=== PATIENT | male | born 1950 | race Caucasian/White ===

== ENCOUNTER 2016-08-05 03:42 | Inpatient (IN) | payer OTHER ==
[2016-08-05] VITALS (9 sets, daily range): BP systolic 126–186; BP diastolic 70–98
[~2016-08-05] VITALS: Ht 170.2 cm; Wt 80.3 kg
--- NOTE | ~2016-08-05 | EKG ---
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
--- NOTE | ~2016-08-05 | EKG ---
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 08/06/16 0852 D: [id number] Dylan Brandt MD, FAC /EPI
--- NOTE | ~2016-08-05 | H ---
[facility] [place] [address] HISTORY AND PHYSICAL Name: LILLIAM HINKLE Room #: 208-P [facility] IN M.R.#: [id number] Admission: 08/05/16 Attend Phys: Jose Vargas Discharge: Date of : 54 Report #: [id number] THIS REPORT FOR: //name// CC: JOSE Vargas TYPE OF DICTATION: Admission H and P after ovca-bh-wmwc encounter. CHIEF COMPLAINT: Chest pain. HISTORY OF PRESENT ILLNESS: A 66-year-old white man with chest pain which awakes him this morning. Retrosternal pressure pain. The patient stated that he has a history of coronary artery disease, CT, stent placement in September 2015. Over the past week, he was not feeling well, has symptoms of ____, generalized weakness, nausea, chills, diarrhea. Last evening, he awoke up with chest pain associated with short of breath and diaphoresis and he got troponin which was negative and EKG did not show any acute changes. REVIEW OF SYSTEMS: Except that mentioned in HPI, all other systems are negative. PAST MEDICAL HISTORY: 1. CT with stent placement in September 2015. 2. Hypertension. 3. Diabetes mellitus. 4. Hyperlipidemia. 5. Tobacco abuse. PAST SURGICAL HISTORY: Stent placement. MEDICATIONS: See admission reconciliation sheet. ALLERGIES: No known drug allergies. SOCIAL HISTORY: He is positive for smoking up to 2-1/2 pack per day. FAMILY HISTORY: Noncontributory. PHYSICAL EXAMINATION: GENERAL: He is alert, oriented, not in acute distress. VITAL SIGNS: Blood pressure 160/80, heart rate 70, temperature 36.8, respirations 18. HEENT: PERRLA. Intact extraocular muscles. No icterus. NECK: Supple, no JVD, no bruit, no thyroid. CHEST: Good air entry both sides. Normal respiratory effort. CARDIOVASCULAR: Regular rate and rhythm. No murmur, rub or gallop. Normal S1 and S2. [facility] [place] [address] HISTORY AND PHYSICAL Name: MANANLILLIAM Nicolas Room #: [address] [place] [address] IN .R.#: [id number] Admission: 08/05/16 Attend Phys: Jose Vargas Discharge: Date of : 54 Report #: [id number] ABDOMEN: Lax, nontender, positive bowel sounds, no organomegaly appreciated. EXTREMITIES: No cyanosis, clubbing or edema. NEUROLOGIC: Cranial nerves 2-12 are intact. No focal neurological signs. PSYCHIATRIC: Normal affect, mood and judgment. SKIN: Intact. No ulcers or rash. LABORATORY DATA: White count is 11.7, hemoglobin 16.5. Sodium 138, creatinine 0.7 and troponin is negative. EKG did not show any abnormalities. Chest x-ray is negative. ASSESSMENT AND PLAN: 1. The patient is going to be admitted to telemetry. We are going to have serial troponins and EKGs and give him his home medicines and nitroglycerin and we are going to have Cardiology to see the patient. Eventually, he may need a nuclear stress test. 2. Nausea, vomiting and loss of appetite, this may be secondary to the . We are going to treat him symptomatically. 3. History of coronary artery disease status post stents. Continue aspirin and Plavix. 4. Hypertension, seems to be in fair range. We are going to continue home medication for that. 5. Diabetes mellitus. Continue his home regimen and check his blood sugars 4 times a day. 6. Tobacco abuse. I strongly recommended to quit. 7. Deep vein thrombosis and gastrointestinal prophylaxis. 8. The patient is going to be full code. <ELECTRONICALLY SIGNED> By: Walt Garcia MD 08/05/16 1519 1128 1358 Walt Garcia MD /nt
--- NOTE | ~2016-08-05 | EKG ---
[address] [address] ELECTROCARDIOGRAM REPORT Name: LILLIAM HINKLE Room #: 208-P ADM IN M.R.#: [id number] Admission: 08/05/16 Attend Phys: Jose Vargas Discharge: Date of : 54 Report #: [id number] THIS REPORT FOR: //name// [facility] Test Date: 2016-08-05 Test Time: 14:59:24 Pat Name: LILLIAM HINKLE Department: Room: 208 P Gender: M Donor Support Technician: Eusebio MEDELLIN : 1950 Requested By: Walt Garcia Order Number: [id number] MD: Dylan Brandt Measurements Intervals [place] Rate: 69 P: 64 [place]: 170 QRS: -35 QRSD: 98 T: 60 QT: 452 QTc: 485 Interpretive Statements Sinus rhythm Left axis deviation Borderline prolonged QT interval No previous ECG available for comparison Electronically Signed On 08-06-2016 8:57:07 PLANER OPERATOR / GRADER by Dylan Brandt [email or web address] <ELECTRONICALLY SIGNED> By: Dylan Brandt MD, [facility] 08/06/16 0857 1459 1459 Dylan Brandt MD, FAC /EPI
--- NOTE | ~2016-08-05 | D ---
[facility] [place] [address] [place] [address] DISCHARGE SUMMARY Name: LILLIAM HINKLE Nicolas Room #: 208-P [facility] IN M.R.#: [id number] Admission: 08/05/16 Attend Phys: Jose Vargas Discharge: 08/06/16 Date of : 54 Report #: [id number] THIS REPORT FOR: //name// CC: JOSE Vargas TYPE OF DICTATION: Discharge summary after regv-fv-eobb encounter. DISCHARGE DIAGNOSES: 1. Chest pain, resolved. 2. History of myocardial infarction with stent placed in September 2015. 3. Hypertension. 4. Diabetes. 5. Hyperlipidemia. 6. Tobacco abuse. DISCHARGE MEDICATIONS: See discharge summary. HOSPITAL COURSE: The patient was admitted to the hospital secondary to chest pain. The patient was admitted to telemetry and serial troponin was done and EKGs, which came back negative and EKG did not show any acute changes. Cardiology was consulted and they did see the patient and they decided to go with a stress test, which was done today. Nuclear stress test was negative for ischemic changes. So, the patient is stable and he is going to be discharged and to follow up with cardiology as an outpatient. <ELECTRONICALLY SIGNED> By: Walt Garcia MD 08/15/16 1708 1337 1402 Walt Garcia MD /nt
--- NOTE | ~2016-08-05 | CARDNUC ---
[facility] [employer] [place] [address] CARDIAC NUCLEAR IMAGING REPORT Name: MANANLILLIAM D Room #: 208-P [facility]#: [id number] Admission: 08/05/16 Attend Phys: Jose Hinkle Discharge: 08/06/16 Date of : 54 Date of Service: 08/06/16 1304 Report #: [id number] THIS REPORT FOR: //name// CC: JOSE Vargas DATE OF SERVICE: 08/06/2016 MYOCARDIAL PERFUSION IMAGING STUDY USING REGADENOSON GENDER: Male. PRIMARY CARE PHYSICIAN: Dr. Joshua. INDICATION: Chest pain. CORONARY HISTORY: CAD/PCI. CARDIOVASCULAR RISK FACTORS: Age, hypertension and hyperlipidemia. CARDIAC MEDICATIONS: Aspirin, Lipitor, Coreg and Plavix. TYPE OF STUDY: The patient underwent a SPECT study. STRESS PROTOCOL: A total of 0.4 mg of regadenoson was injected intravenously, followed by Cardiolite. The patient did not ambulate during the procedure. HEMODYNAMIC DATA: The resting heart rate was 61 beats per minute, with a blood pressure of 168/80 mmHg. Following regadenoson, the heart rate increased to 94 beats per minute and the systolic blood pressure did not significantly increase. The patient had symptoms consistent with regadenoson, but no chest discomfort. ELECTROCARDIOGRAM: The resting electrocardiogram revealed a sinus rhythm, nonspecific ST-segment abnormalities. Following regadenoson, there were no significant arrhythmias or ST-segment changes. PERFUSION IMAGING: Myocardial perfusion imaging was performed using Cardiolite, 10.5 mCi for the resting images and 35.0 mCi for the stress images. This was a same-day rest-stress imaging protocol. Gated SPECT images were obtained. Comparison of the post-pharmacologic stress and rest images revealed a mild fixed inferior wall defect. The gated portion of the study revealed normal global and segmental LV systolic function, ejection fraction of 61%. The fixed inferior wall defect most likely represents diaphragmatic attenuation artifact. IMPRESSION: [facility] [address] [place] [address] CARDIAC NUCLEAR IMAGING REPORT Name: LILLIAM HINKLE Room #: 208-P [facility] IN .R.#: [id number] Admission: 08/05/16 Attend Phys: Jose Hinkle Discharge: 08/06/16 Date of : 54 Date of Service: 08/06/16 1304 Report #: [id number] 1. Clinical response, nondiagnostic. 2. Stress ECG response, nonischemic. 3. Perfusion imaging, nonischemic. 4. Ventricular function, normal. CONCLUSION: This study is of low probability for inducible ischemia or prior infarct. There is normal global and segmental LV systolic function. <ELECTRONICALLY SIGNED> By: Ernesto Arroyo MD 08/07/16 0739 1304 1348 Ernesto Arroyo MD /nt
--- NOTE | ~2016-08-05 | HC ---
[facility] [place] [address] CONSULTATION Name: MANANLILLIAM Nicolas Room #: 208-P [facility] IN .R.#: [id number] Admission: 08/05/16 Attend Phys: Jose Vargas Discharge: Date of : 54 Report #: [id number] THIS REPORT FOR: //name// CC: JOSE Vargas DATE OF SERVICE: 08/05/2016 INDICATION: Chest pain. HISTORY OF PRESENT ILLNESS: This is a 66-year-old gentleman presenting with chest pains that woke him up last evening. He has a prior history of AL with stent placement in September 2015, at the [facility]. For the past week, he has been feeling ill with symptoms of nausea, loss of appetite, generalized weakness, chills, and diarrhea. Last evening, he woke up with chest pains, associated with shortness of breath and diaphoresis. The initial ECG did not reveal any acute ST segment changes. Serial troponin levels have been negative. Presently, his pain has abated. PAST MEDICAL HISTORY: 1. CAD with AL with stent placement in September 2015, at the [facility]. 2. Hypertension. 3. Diabetes mellitus. 4. Hypercholesterolemia. 5. Tobacco use. ALLERGIES: None. CURRENT MEDICATIONS: Include aspirin 81 mg daily, hydrocodone, Lipitor 40 mg a night, Coreg 12.5 mg twice a day, Plavix 75 mg daily, Neurontin, glipizide 5 mg, and metformin. SOCIAL HISTORY: Positive tobacco use, smokes 1-1/2 packs per day. FAMILY HISTORY: Negative for premature CAD. REVIEW OF SYSTEMS: A full 10-point review of systems performed. Only the pertinent positives and negatives are described in the HPI. PHYSICAL EXAMINATION: VITAL SIGNS: Blood pressure is 160/80, heart rate is 68 beats per minute. GENERAL APPEARANCE: This is an elderly appearing male, in no acute respiratory distress. HEAD AND EYES: Normocephalic. Sclerae are anicteric. ENT: Oral mucosa moist. NECK: Supple. [facility] [address] [place] [address] CONSULTATION Name: LILLIAM HINKLE Room #: 208-[facility] IN .R.#: [id number] Admission: 08/05/16 Attend Phys: Jose Vargas Discharge: Date of : 54 Report #: [id number] LUNGS: Clear to auscultation. CARDIAC: Regular rate and rhythm, S1, S2 positive. ABDOMEN: Soft. EXTREMITIES: No major joint deformities. No edema. ECG reveals sinus rhythm, nonspecific ST segment abnormalities. LABORATORY VALUES: White count is 11.7, hemoglobin is 16.5. Sodium is 138, creatinine 0.7. Troponin is negative x2. ASSESSMENT: 1. Chest pain syndrome, serial troponins are negative. The etiology is unclear, may be related to ischemia, gastrointestinal, musculoskeletal, etc. He will need an ischemic evaluation. Given his symptoms, would favor a nuclear stress test. 2. Nausea, diarrhea, loss of appetite, rule out viral illness. 3. Coronary artery disease with myocardial infarction, continue with aspirin and Plavix. 4. Hypertension, continue with medications. 5. Diabetes mellitus, continue with medications. 6. Tobacco use, complete smoking cessation is recommended Thank you for allowing me to participate in the care of your patient. <ELECTRONICALLY SIGNED> By: Ernesto Arroyo MD 08/06/16 0838 1046 1110 Ernesto Arroyo MD /nt
--- NOTE | ~2016-08-05 | 2DMMODE ---
[facility] [place] [employer] [place] [address] 2 D/M-MODE ECHOCARDIOGRAM Name: LILLIAM HINKLE Room #: 208-P [facility] IN .R.#: [id number] Admission: 08/05/16 Attend Phys: Jose Hinkle Discharge: Date of : 54 Date of Service: 08/06/16 0825 Report #: [id number] THIS REPORT FOR: //name// Transthoracic Echocardiography Ordering physician: Ernesto Arroyo MD Referring physician: Ernesto Arroyo MD Media Clerk: Brianda Post Indications/History: Chest pain. Hx: CAD, VA, Stent, DM, HTN, HLP, tobacco abuse BP: 177 / HR: 63bpm Height: 67in Weight: 177.6lb 83 Study data: M-mode, complete 2D, complete spectral Doppler, and color Doppler. Location: Echo laboratory. Routine. Image quality was adequate. The parasternal window was low. 2D measurements Normal Normal LVID ED 48.2mm 36-57 IVS ED 9.8mm 6-11 LVID ES 32.7mm 23-40 LVPW ED 10.4mm 6-11 LA volume 25ml/m2 16-28 AoRoot diam 38.3mm 21-37 index ED LVOT diameter 21mm 18-23 Findings: Left ventricle: The cavity size was normal. Wall thickness was normal. Systolic function was normal. The estimated ejection fraction was in the range of 55% to 60%. Wall motion was normal. Right ventricle: The cavity size was normal. Systolic function was normal. Right atrium: The atrium was normal in size. Left atrium: The atrium was normal in size. Volume index: 25ml/m2 (S). Aortic valve: Moderately thickened, moderately calcified leaflets. Doppler: There was mild to moderate stenosis. [facility] [place] [address] 2 D/M-MODE ECHOCARDIOGRAM Name: LILLIAM HINKLE Room #: 208-P [facility] IN [facility]#: [id number] Admission: 08/05/16 Attend Phys: Jose Hinkle Discharge: Date of : 54 Date of Service: 08/06/16 0825 Report #: [id number] No regurgitation. Peak velocity: 265.2cm/s (S). Mean gradient: 17.3mm Hg (S). Peak gradient: 28.1mm Hg (S). Mitral valve: Structurally normal valve. Doppler: There was no evidence for stenosis. No regurgitation. Peak E-wave velocity: 100.6cm/s. Peak gradient: 4mm Hg (D). Peak A-wave velocity: 111.5cm/s. Tricuspid valve: Structurally normal valve. Doppler: There was no evidence for stenosis. Trivial regurgitation. Regurgitant peak velocity: 218.1cm/s. Peak RV-RA gradient: 19mm Hg (S). Pulmonic valve: Structurally normal valve. Doppler: There was no evidence for stenosis. No regurgitation. Pericardium: There was no pericardial effusion. Aorta: Aortic root: The aortic root was normal in size. Pulmonary artery: Systolic pressure was estimated to be 24mm Hg. Diastolic function: Doppler parameters are consistent with abnormal left ventricular relaxation (grade 1 diastolic dysfunction). Systemic veins: Inferior vena cava: The vessel was normal in size; the respirophasic diameter changes were in the normal range (= 50%). Conclusions 1. Left ventricle: Systolic function was normal. The estimated ejection fraction was in the range of 55% to 60%. Wall motion was normal. 2. Aortic valve: Moderately thickened, moderately calcified leaflets. There was mild to moderate stenosis. No regurgitation. 3. Mitral valve: Structurally normal valve. No regurgitation. 4. Pericardium, extracardiac: There was no pericardial effusion. 5. Pulmonary arteries: Systolic pressure was estimated to be 24mm Hg. <ELECTRONICALLY SIGNED> By: Dylan Brandt MD, [facility] 08/06/1610 0825 0910 Dylan rBandt MD, [facility] /ori
--- NOTE | ~2016-08-05 | EKG ---
[address] [address] ELECTROCARDIOGRAM REPORT Name: LILLIAM HINKLE Room #: 208-P ADM IN M.R.#: [id number] Admission: 08/05/16 Attend Phys: Jose Vargas Discharge: Date of : 54 Report #: [id number] THIS REPORT FOR: //name// [facility] Test Date: 2016-08-05 Test Time: 08:49:28 Pat Name: LILLIAM HINKLE Department: Room: 208 P Gender: M Director Telecommunications: best : 1950 Requested By: Walt Garcia Order Number: [id number] MD: Dylan Brandt Measurements Intervals [place] Rate: 60 P: 80 GA: 157 QRS: -41 QRSD: 95 T: 61 QT: 438 QTc: 438 Interpretive Statements Sinus rhythm Left axis deviation No previous ECG available for comparison Electronically Signed On 08-06-2016 8:49:50 AIRPLANE DISPATCHER by Dylan Brandt [email or web address] <ELECTRONICALLY SIGNED> By: Dylan Brandt MD, [facility] 08/06/16 0849 0849 0849 Dylan Brandt MD, FACC /EPI
[2016-08-05] MEDS ORDERED: BAYER CHEWABLE81 MG PO (03:59)
[2016-08-05] MEDS ORDERED: HYDROCODON-ACE1 EAC5 (04:00)
[2016-08-05] MEDS ORDERED: ATORVASTATIN CA40 MG PO (04:01)
[2016-08-05 04:02] LABS: ABSOLUTE NEUTROPHILS 9.2 thou/uL (1.4-8.2); BASOPHILS 0.8 % (0.0-2.0); EOSINOPHILS 0.3 % (0.0-3.0); HEMATOCRIT 49.4 % (42.0-52.0); HEMOGLOBIN 16.5 gm/dL (14.0-18.0); LYMPHOCYTES 13.2 % (24.0-44.0); MCH 32.4 pg (26.0-34.0); MCHC 33.4 % (28.0-37.0); MCV 96.9 fL (80.0-100.0); MONOCYTES 7.1 % (1.0-8.0); PLATELET COUNT 238 thou/uL (150-400); POLYS 78.6 % (36.0-66.0); RDW 13.1 % (10.5-14.5); WBC 11.7 thou/uL (4.0-11.0)
[2016-08-05] MEDS ORDERED: MORPHINE SULFAT30 M4 (04:03)
[2016-08-05] MEDS ORDERED: CARVEDILOL12.5 MG PO (04:04)
[2016-08-05] MEDS ORDERED: PLAVIX 75 MG TA75 M1 PO (04:04)
[2016-08-05] MEDS ORDERED: GABAPENTIN (04:05)
[2016-08-05] MEDS ORDERED: GLUCOTROL5 MG (04:05)
[2016-08-05] MEDS ORDERED: METFORMIN (04:06)
[2016-08-05 04:08] LABS: MANUAL DIFF NO
[2016-08-05 04:09] LABS: ANION GAP 12 mmol/L (7-16); BUN 15 mg/dL (7-18); CALCIUM 8.6 mg/dL (8.5-10.1); CHLORIDE 102 mmol/L (98-107); CO2 24 mmol/L (21-32); CREATININE 0.7 mg/dL (0.6-1.3); GLUCOSE 95 mg/dL (70-99); SODIUM 138 mmol/L (136-145)
[2016-08-05 04:17] LABS: TROPONIN-I < 0.04 ng/mL (<0.04-0.07)
[2016-08-06 02:49] LABS: HEMATOCRIT 49.3 % (42.0-52.0); HEMOGLOBIN 16.6 gm/dL (14.0-18.0); MCH 32.3 pg (26.0-34.0); MCHC 33.6 % (28.0-37.0); MCV 96.1 fL (80.0-100.0); RBC 5.13 mil/uL (4.50-6.00); RDW 13.2 % (10.5-14.5); WBC 10.5 thou/uL (4.0-11.0)
[2016-08-06 03:10] LABS: ALBUMIN 3.5 g/dL (3.4-5.0); CALCIUM 8.8 mg/dL (8.5-10.1); CREATININE 0.7 mg/dL (0.6-1.3); TOTAL BILIRUBIN 1.2 mg/dL (<0.1-1.0); TOTAL PROTEIN 6.4 g/dL (6.4-8.2)
[2016-08-06 03:42] VITALS: BP 177/83
[2016-08-06 08:00] VITALS: BP 156/67
[2016-08-06 10:12] LABS: URINE BLOOD 1+ (Negative); URINE COLOR YELLOW; URINE GLUCOSE-RANDOM* NEGATIVE (Negative); URINE KETONES 3+ (Negative); URINE LEUKOCYTES-REFLEX NEGATIVE (Negative); URINE PROTEIN (DIPSTICK) 2+ (Negative); URINE SPECIFIC GRAVITY >= 1.030 (1.003-1.035)
[2016-08-06 10:17] LABS: ICTOTEST (BILI CONFIRMATORY) Negative (Negative); URINE BILIRUBIN NEGATIVE (Negative)
[2016-08-06 10:36] LABS: CASTS None Seen /LPF (None Seen); CRYSTALS None Seen /LPF (None Seen); SQUAMOUS 0-3 Few /LPF (0-3); URINE RBC 3-10 Few /HPF (0-2); URINE WBC-REFLEX 0-5 Rare /HPF (0-5)
[2016-08-06 14:04] VITALS: BP 156/67
== END 2016-08-06 14:27 | disposition home or self-care (01) | DRG 392 ==
LOC: ER 03:42 → 2N 04:24 → EROBS 04:24 → 2N 04:44
PROVIDERS: Emergency Medicine; Hospitalist
DX: K21.9 Gastro-esophageal reflux disease without esophagitis (principal); I10 Essential (primary) hypertension; E11.9 Type 2 diabetes mellitus without complications; R63.0 Anorexia; R11.2 Nausea with vomiting, unspecified; I35.0 Nonrheumatic aortic (valve) stenosis; F17.210 Nicotine dependence, cigarettes, uncomplicated; I25.10 Atherosclerotic heart disease of native coronary artery without angina pectoris; E78.00 Pure hypercholesterolemia, unspecified; Z82.49 Family history of ischemic heart disease and other diseases of the circulatory system; Z95.5 Presence of coronary angioplasty implant and graft; Z98.890 Other specified postprocedural states; Z79.899 Other long term (current) drug therapy; Z79.82 Long term (current) use of aspirin; I25.2 Old myocardial infarction; Z68.27 Body mass index [BMI] 27.0-27.9, adult; Z79.891 Long term (current) use of opiate analgesic
CPT/HCPCS: 10081

== ENCOUNTER 2018-05-05 08:30 | Emergency (ER) | payer OTHER ==
[~2018-05-05] VITALS: Ht 172.7 cm; Wt 81.7 kg
--- NOTE | ~2018-05-05 | EKG ---
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: : 1950 Requested By: Aislinn Drummond Order Number: [id number] MD: Mariusz Tapia Measurements Intervals [place] Rate: 82 P: 83 W[place]: 155 QRS: -51 QRSD: 93 T: 76 QT: 409 QTc: 478 Interpretive Statements Sinus rhythm Multiple ventricular premature complexes LAD, consider left anterior fascicular block Anteroseptal infarct, age indeterminate Compared to ECG 06/16/2017 04:53:39 Ventricular premature complex(es) now present Myocardial infarct finding now present T-wave abnormality no longer present Electronically Signed On 05-05-2018 9:58:08 CDT by Mariusz Tapia [email or web address] <ELECTRONICALLY SIGNED> By: Mariusz Tapia MD 05/05/1858 2 2 Mariusz Tapia MD /EPI
[~2018-05-05 08:30] MED LIST: ACCUNEB SO1.25 MG/1 INH; ATORVASTATIN CA40 MG PO; BAYER CHEWABLE81 MG PO; CARVEDILOL12.5 MG PO; FLONASE 0.05%50 MCG NASAL; GABAPENTIN; GLUCOTROL5 MG; HYDROCODON-ACE1 EAC5; METFORMIN; MORPHINE SULFAT30 M4 PO; NEURONTIN600 MG PO; PLAVIX 75 MG TA75 M1 PO; PROZAC 20 MG20 MG PO; TRAZODONE HCL100 MG PO
[2018-05-05 09:00] LABS: ABSOLUTE NEUTROPHILS 6.6 thou/uL (1.4-8.2); BASOPHILS 1.1 % (0.0-2.0); EOSINOPHILS 1.3 % (0.0-3.0); HEMATOCRIT 47.1 % (42.0-52.0); HEMOGLOBIN 15.8 gm/dL (14.0-18.0); LYMPHOCYTES 18.3 % (24.0-44.0); MCHC 33.6 g/dL (28.0-37.0); MCV 95.2 fL (80.0-100.0); MONOCYTES 3.8 % (1.0-8.0); PLATELET COUNT 279 thou/uL (150-400); POLYS 75.5 % (36.0-66.0); RBC 4.95 mil/uL (4.50-6.00); RDW 13.2 % (10.5-14.5); WBC 8.8 thou/uL (4.0-11.0)
[2018-05-05 09:05] LABS: BE(vivo) 6.2 mmol/L (-2 to +3); HCO3 35.8 mmol/L (22.0-26.0); PCO2 VENOUS 73.2 mmHg (41.0-51.0); PO2 VENOUS 21.3 mmHg (35.0-45.0)
[2018-05-05 09:13] LABS: ANION GAP 4 mmol/L (7-16); BUN 5 mg/dL (7-18); CALCIUM 9.8 mg/dL (8.5-10.1); CHLORIDE 95 mmol/L (98-107); CO2 39 mmol/L (21-32); CREATININE 0.7 mg/dL (0.7-1.3); GLUCOSE 128 mg/dL (74-106); POTASSIUM 4.5 mmol/L (3.5-5.1); SODIUM 138 mmol/L (136-145)
[2018-05-05 09:22] LABS: SGOT 19 U/L (15-37); SGPT 18 U/L (30-65); TOTAL BILIRUBIN 0.8 mg/dL (<0.1-1.0); TOTAL PROTEIN 7.5 g/dL (6.4-8.2); TROPONIN-I <0.06 ng/mL (<0.06)
[2018-05-05] MEDS ORDERED: NEURONTIN600 MG PO (09:32)
[2018-05-05 12:35] LABS: BE(vivo) 5.4 mmol/L (-2 to +3); HCO3 30.5 mmol/L (22.0-26.0); PCO2 46.3 mmHg (35.0-45.0); PO2 53.3 mmHg (80.0-100.0); pH 7.437 (7.360-7.450); sO2 88.5 % (92.0-98.0)
== END 2018-05-05 16:27 | disposition short-term general hospital (02) ==
LOC: ER 08:30
PROVIDERS: Student in an Organized Health Care Education/Training Program
DX: J44.1 Chronic obstructive pulmonary disease with (acute) exacerbation (principal); I10 Essential (primary) hypertension; F17.210 Nicotine dependence, cigarettes, uncomplicated

== ENCOUNTER 2019-10-27 22:11 | Inpatient (IN) | payer OTHER ==
[~2019-10-27] VITALS: Ht 172.7 cm; Wt 88.5 kg
[2019-10-27 22:12] VITALS: BP 164/99
[2019-10-27 22:39] LABS: BE(vivo) -3.4 mmol/L (-2 to +3); HCO3 26.5 mmol/L (22.0-26.0); PO2 255.9 mmHg (80.0-100.0); sO2 99.4 % (92.0-98.0)
[2019-10-27 22:40] LABS: PCO2 70.6 mmHg (35.0-45.0); pH 7.192 (7.360-7.450)
[2019-10-27 22:41] LABS: ABSOLUTE NEUTROPHILS 12.1 thou/uL (1.4-8.2); EOSINOPHILS 1.7 % (0.0-3.0); HEMATOCRIT 44.7 % (42.0-52.0); HEMOGLOBIN 14.1 gm/dL (14.0-18.0); LYMPHOCYTES 28.7 % (24.0-44.0); MCHC 31.5 g/dL (28.0-37.0); MCV 95.3 fL (80.0-100.0); MONOCYTES 4.8 % (1.0-8.0); PLATELET COUNT 299 thou/uL (150-400); POLYS 63.8 % (36.0-66.0); RBC 4.69 mil/uL (4.50-6.00); RDW 14.2 % (10.5-14.5); WBC 19.1 thou/uL (4.0-11.0)
[2019-10-27 23:00] LABS: ALBUMIN 4.2 g/dL (3.4-5.0); ANION GAP 3 mmol/L (7-16); BUN 25 mg/dL (7-18); CALCIUM 9.4 mg/dL (8.5-10.1); CHLORIDE 95 mmol/L (98-107); CO2 35 mmol/L (21-32); CREATININE 1.4 mg/dL (0.7-1.3); DIRECT BILIRUBIN < 0.1 mg/dL (<0.1-0.2); GLUCOSE 196 mg/dL (74-106); SGOT 129 U/L (15-37); SGPT 76 U/L (30-65); SODIUM 133 mmol/L (136-145); TOTAL BILIRUBIN 0.9 mg/dL (<0.1-1.0); TOTAL PROTEIN 7.4 g/dL (6.4-8.2); TROPONIN-I <0.06 ng/mL (<0.06)
[2019-10-27 23:01] LABS: POTASSIUM 6.9 mmol/L (3.5-5.1)
[2019-10-28] VITALS (83 sets, daily range): BP systolic 100–160; BP diastolic 61–88
[2019-10-28 00:30] LABS: URINE BILIRUBIN NEGATIVE (Negative); URINE BLOOD NEGATIVE (Negative); URINE CLARITY CLEAR; URINE COLOR YELLOW; URINE GLUCOSE-RANDOM* NEGATIVE (Negative); URINE KETONES TRACE (Negative); URINE LEUKOCYTES-REFLEX NEGATIVE (Negative); URINE NITRITE-REFLEX NEGATIVE (Negative); URINE PROTEIN (DIPSTICK) NEGATIVE (Negative); URINE UROBILINOGEN 0.2 E.U./dl (0.2-1.0)
[2019-10-28 00:38] LABS: ANION GAP < 0 mmol/L (7-16); BUN 27 mg/dL (7-18); CALCIUM 7.8 mg/dL (8.5-10.1); CHLORIDE 95 mmol/L (98-107); CO2 36 mmol/L (21-32); CREATININE 1.5 mg/dL (0.7-1.3); GLUCOSE 179 mg/dL (74-106); SODIUM 129 mmol/L (136-145)
[2019-10-28 00:40] LABS: AMP/METHAMP Negative (Negative); BARBITURATES Negative (Negative); BENZODIAZEPINES Negative (Negative); COCAINE Negative (Negative); METHADONE Negative (Negative); OPIATES POSITIVE (Negative); PCP Negative (Negative)
[2019-10-28 00:50] LABS: BE(vivo) 0.6 mmol/L (-2 to +3); HCO3 28.4 mmol/L (22.0-26.0); PCO2 60.5 mmHg (35.0-45.0); PO2 99.6 mmHg (80.0-100.0); sO2 96.7 % (92.0-98.0)
--- NOTE | 2019-10-28 02:15 | NUR ---
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 NONRESPONSIVE. HAS OCC TWITCHINBG OF EYES QND HANDS. VERSED ADB PROPOFOL GTTS.
--- NOTE | 2019-10-28 02:20 | NUR ---
PT STARTED ON HYPOTHERMIA PROTOCAL. ARTIC SUN PLACED. WILL CONT TO MONITOR.
[2019-10-28 05:41] LABS: BE(vivo) 0.9 mmol/L (-2 to +3); HCO3 28.7 mmol/L (22.0-26.0); PCO2 58.9 mmHg (35.0-45.0); PO2 100.7 mmHg (80.0-100.0); sO2 96.9 % (92.0-98.0)
[2019-10-28 05:42] LABS: pH 7.305 (7.360-7.450)
--- NOTE | 2019-10-28 06:00 | NUR ---
REMAINS INTUBATED AND NONRESPONSIVE HYPOTHERMIA CONT. TEMP NOW 33.4 . 600 CC UO THIS SHIFT. VERSED AND PROPOFOL GTTS PER ORDERS. WILL CONT TO MONITOR CLOSELY.
[2019-10-28 07:30] LABS: HEMATOCRIT 42.3 % (42.0-52.0); HEMOGLOBIN 13.3 gm/dL (14.0-18.0); MCH 29.9 pg (26.0-34.0); MCHC 31.5 g/dL (28.0-37.0); MCV 94.8 fL (80.0-100.0); PLATELET COUNT 229 thou/uL (150-400); RBC 4.46 mil/uL (4.50-6.00); RDW 14.1 % (10.5-14.5); WBC 24.3 thou/uL (4.0-11.0)
[2019-10-28 07:48] LABS: D-DIMER 4.02 ug/mLFEU (0.19-0.50); FIBRINOGEN 231.9 mg/dL (210-360)
[2019-10-28 07:59] LABS: ANION GAP 3 mmol/L (7-16); BUN 33 mg/dL (7-18); CALCIUM 9.6 mg/dL (8.5-10.1); CHLORIDE 98 mmol/L (98-107); CO2 33 mmol/L (21-32); CREATININE 1.6 mg/dL (0.7-1.3); GLUCOSE 213 mg/dL (74-106); MAGNESIUM 1.6 mg/dL (1.8-2.4); PHOSPHORUS 3.3 mg/dL (2.5-4.9); SODIUM 134 mmol/L (136-145); TROPONIN-I <0.06 ng/mL (<0.06)
[2019-10-28 08:00] LABS: POTASSIUM 5.6 mmol/L (3.5-5.1)
[2019-10-28 08:08] LABS: ABSOLUTE NEUTROPHILS 22.4 thou/uL (1.4-8.2); METAMYELOCYTES 1 %
[2019-10-28 08:09] LABS: APTT 26.1 Seconds (24.5-32.8); INR 1.1; PLATELET ESTIMATE NORMAL; PROTIME 10.9 Seconds (9.3-11.4)
--- NOTE | 2019-10-28 08:52 | 2DMMODE ---
[facility] [place] [address] 2 D/M-MODE ECHOCARDIOGRAM Name: LILLIAM HINKLE Room #: 244-P ADM IN M.R.#: [id number] Admission: 10/28/19 Attend Phys: Jim Sandoval MD Discharge: Date of : 54 Report #: [id number] REPORT FOR: cc: FAM - No family physician/PCP FAM - No family physician/PCP Dylan Brandt MD [facility] ~ APPROVED REPORT Study performed: 10/28/2019 07:44:32 EXAM: Comprehensive 2D, Doppler, and color-flow Echocardiogram Patient Location: ICU Room #: 244 Status: routine BSA: 1.98 HR: 61 bpm BP: 145/72 mmHg Rhythm: NSR Other Information Study Quality: Fair/No apical windows. Limited measurements Technically limited study due to Flat on back on vent. COPD.. Indications Status post cardiac arrest. Hx: CAD, stents, CHF, COPD, PVD, HTN, DM. 2D Dimensions IVSd: 12.65 (7-11mm) LVOT Diam: 21.49 (18-24mm) LVDd: 44.33 mm PWd: 12.03 (7-11mm) LVDs: 28.48 (25-40mm) Aortic Root: 36.85 mm Aortic Valve AoV Peak Stephen.: 2.46 m/s AO Peak Gr.: 24.26 mmHg LVOT Max P.41 mmHg AO Mean Gr.: 8.31 mmHg AO V2 Mean: 1.36 m/s LVOT Max V: 0.78 m/s AO V2 VTI: 46.06 cm MARIO Vmax: 1.14 cm2 [facility] [email or web address] [address] 2 D/M-MODE ECHOCARDIOGRAM Name: LILLIAM HINKLE Nicolas Room #: 244-P [facility]#: [id number] Admission: 10/28/19 Attend Phys: Jim Sandoval MD Discharge: Date of : 54 Report #: [id number] Mitral Valve E/A Ratio: 0.7 MV Decel. Time: 284.20 ms MV E Max Stephen.: 0.43 m/s MV A Stephen.: 0.66 m/s MV PHT: 82.42 ms IVRT: 103.81 ms Pulmonary Valve PV Peak Stephen.: 1.00 m/s PV Peak Gr.: 4.01 mmHg Tricuspid Valve TR Peak Stephen.: 3.80 m/s RAP Estimate: 10.00 mmHg TR Peak Gr.: 58.00 mmHg PA Pressure: 68.00 mmHg Left Ventricle The left ventricle is normal size. There is normal LV segmental wall motion. Mild concentric left ventricular hypertrophy. Left ventricular systolic function is normal. LVEF is 60-65%. Mild diastolic dysfunction is present (impaired relaxation pattern). Right Ventricle The right ventricle is normal size. The right ventricular systolic function is normal. Atria The left atrium size is normal. The right atrium size is normal. Aortic Valve Aortic valve is heavily calcified, probably bicuspid. No aortic regurgitation is present. Probably moderate aortic stenosis. Unable to get reliable transaortic gradients Mitral Valve The mitral valve is normal in structure. There is no mitral valve regurgitation noted. No evidence of mitral valve stenosis. Tricuspid Valve The tricuspid valve is normal in structure. Mild tricuspid regurgitation. Estimated PAP is 65-70mmHg. Pulmonic Valve The pulmonary valve is normal in structure. Trace pulmonic [facility] [address] [place] [address] 2 D/M-MODE ECHOCARDIOGRAM Name: LILLIAM HINKLE Nicolas Room #: 244-P ADM IN M.R.#: [id number] Admission: 10/28/19 Attend Phys: Jim Sandoval MD Discharge: Date of : 54 Report #: [id number] regurgitation. Great Vessels The aortic root is normal in size. IVC is normal in size and collapses <50% with inspiration. Pericardium There is no pericardial effusion. <Conclusion> Left ventricular systolic function is normal. There is normal LV segmental wall motion. LVEF is 60-65%. Mild diastolic dysfunction Aortic valve is heavily calcified, probably bicuspid. Probably moderate aortic stenosis. Unable to get reliable transaortic gradients The mitral valve is normal in structure. No mitral valve regurgitation Estimated PAP of 65-70mmHg. There is no pericardial effusion. <ELECTRONICALLY SIGNED> By: Dylan Brandt MD, FACC 10/28/19850 0 0 Dylan Brandt MD, FAC /INF
--- NOTE | 2019-10-28 09:00 | NUR ---
ORDERS RECEIVED FOR PT EVAL AND TREAT. Pt HAD UNWITNESSED CARDIAC ARREST AT HOME. Pt IS CURRENTLY INTUBATED ON VENTILATOR IN ICU. NOT CURRENTLY APPROPRIATE FOR PT INTERVENTIONS. PT ON HOLD FOR PT INTERVENTIONS BUT WILL CONTINUE TO FOLLOW.
--- NOTE | 2019-10-28 09:21 | NUR ---
RECEIVED OT EVALUATION AND TREAT ORDERS. PATIENT WITH AN UNWITNESSED CARDIAC ARREST AT HOME. PATIENT IS CURRENTLY INTUBATED IN THE ICU. PATIENT NOT APPROPRIATE FOR OT INTERVENTIONS AT THIS TIME BUT WILL CONTINUE TO FOLLOW.
--- NOTE | 2019-10-28 09:57 | NUR ---
0730-ASSUMMED CARE OF PT. IN TO SEE.--VW 09-PT PLACED IN ENHANCED ISOLATION PER .--VW 09- IN TO SEE-UPDATED ON EVENTS & R/O. ADMISSION CO-VID 19 SWAB SENT.--VW
--- NOTE | 2019-10-28 10:42 | NUR ---
UNABLE TO OBTAIN ANY BLOOD VIA PERIPH STICK. UTO BGFS. PT CLAMPED DOWN. IV THERAPY HERE TO ATTEMPT LINE. UPDATED EARLIER BY THIS HOBBER W EVENTS,POC. CALLING RE:CLEARNACE OF C.COLLAR-DIRECT RADIOLOGY REPORT NOW ON CHART.IVT WILL ATTEMPT I.J. BUT UNABLE TO ACCESS W COLLAR IN PLACE.--VW
--- NOTE | 2019-10-28 11:15 | NUR ---
chart review. discussed during los, down at home. pt remains on vent, hypothermia protocol. being tested for covid 19. will cont following as needed for dc needs.
[2019-10-28 12:52] LABS: BASOPHILS 0.1 % (0.0-2.0); HEMOGLOBIN 13.3 gm/dL (14.0-18.0); LYMPHOCYTES 6.6 % (24.0-44.0); MCHC 32.5 g/dL (28.0-37.0); MCV 92.2 fL (80.0-100.0); MONOCYTES 3.1 % (1.0-8.0); PLATELET COUNT 207 thou/uL (150-400); POLYS 90.2 % (36.0-66.0); RBC 4.45 mil/uL (4.50-6.00); RDW 14.3 % (10.5-14.5); WBC 14.4 thou/uL (4.0-11.0)
[2019-10-28 13:05] LABS: APTT 27.4 Seconds (24.5-32.8); PROTIME 10.5 Seconds (9.3-11.4)
[2019-10-28 13:11] LABS: ANION GAP 1 mmol/L (7-16); BUN 40 mg/dL (7-18); CALCIUM 9.4 mg/dL (8.5-10.1); CHLORIDE 97 mmol/L (98-107); CO2 37 mmol/L (21-32); CREATININE 1.6 mg/dL (0.7-1.3); GLUCOSE 159 mg/dL (74-106); MAGNESIUM 2.1 mg/dL (1.8-2.4); SODIUM 135 mmol/L (136-145); TROPONIN-I <0.06 ng/mL (<0.06)
[2019-10-28 13:14] LABS: POTASSIUM 4.4 mmol/L (3.5-5.1)
--- NOTE | 2019-10-28 15:24 | NUR ---
pt remains on vent, unable to communicate d at this time. cm spoke with dmitry via phone call, active listening and support. intro to cm. will cont following as needed for dc needs. " would like at phone call from his nurse please that last i heard was could not get line in to get fluids in fast enough"/ dmitry. cm passed on to bedside nurse to call when able to [phone].
[2019-10-28 15:42] LABS: HCO3 28.3 mmol/L (22.0-26.0); PCO2 51.2 mmHg (35.0-45.0); PO2 94.6 mmHg (80.0-100.0); pH 7.361 (7.360-7.450); sO2 96.9 % (92.0-98.0)
[2019-10-28 18:40] LABS: ABSOLUTE NEUTROPHILS 11.8 thou/uL (1.4-8.2); BASOPHILS 0.1 % (0.0-2.0); HEMATOCRIT 39.3 % (42.0-52.0); HEMOGLOBIN 12.7 gm/dL (14.0-18.0); LYMPHOCYTES 7.1 % (24.0-44.0); MCH 29.7 pg (26.0-34.0); MCHC 32.2 g/dL (28.0-37.0); MCV 92.3 fL (80.0-100.0); MONOCYTES 3.1 % (1.0-8.0); PLATELET COUNT 207 thou/uL (150-400); POLYS 89.7 % (36.0-66.0); RBC 4.26 mil/uL (4.50-6.00); RDW 14.2 % (10.5-14.5); WBC 13.1 thou/uL (4.0-11.0)
[2019-10-28 18:53] LABS: APTT 27.9 Seconds (24.5-32.8); PROTIME 10.5 Seconds (9.3-11.4)
[2019-10-28 18:54] LABS: CREATININE 1.5 mg/dL (0.7-1.3); PHOSPHORUS 3.3 mg/dL (2.5-4.9); POTASSIUM 4.3 mmol/L (3.5-5.1)
[2019-10-29] VITALS (69 sets, daily range): BP systolic 103–163; BP diastolic 53–128
--- NOTE | 2019-10-29 00:20 | NUR ---
RISK, BENEFITS, AND ALTERNATIVE TREATMENT DISCUSSED WITH FAMILY RELATED TO RIJ CENTRAL CATHETER PLACEMENT AND PROCEDURE. TEACHING GIVEN RELATED TO POSSIBLE COMPLICATIONS SUCH BLEEDING, INFECTION,CLOT, OR VESSEL PERFORATION , OR COLLASPED LUNG. INSTRUCTION GIVEN RELATED TO CLABSI PREVENTION WITH LITERATURE PROVIDED. FAMILY VOICES UNDERSTANDING AND CONSENT OBTAINED. JACC PLACED TO RIJ. ONE STICK AND NO COMPLICATIONS. PATIENT TOLERATED WELL. CHEST XRAY OBTAINED WITH TIP OF TRIPLE LUMEN CENTRAL CATHETER IN THE SVC. PATIENT'S RN NOTIFIED OKAY TO USE.
[2019-10-29 01:58] LABS: BASOPHILS 0.1 % (0.0-2.0); HEMATOCRIT 36.8 % (42.0-52.0); HEMOGLOBIN 11.9 gm/dL (14.0-18.0); LYMPHOCYTES 9.7 % (24.0-44.0); MCHC 32.4 g/dL (28.0-37.0); MCV 92.3 fL (80.0-100.0); MONOCYTES 2.6 % (1.0-8.0); PLATELET COUNT 182 thou/uL (150-400); POLYS 87.6 % (36.0-66.0); RBC 3.98 mil/uL (4.50-6.00); RDW 13.9 % (10.5-14.5); WBC 11.4 thou/uL (4.0-11.0)
[2019-10-29 02:02] LABS: APTT 32.2 Seconds (24.5-32.8); PROTIME 10.6 Seconds (9.3-11.4)
[2019-10-29 02:03] LABS: CALCIUM 8.3 mg/dL (8.5-10.1); CREATININE 1.6 mg/dL (0.7-1.3); MAGNESIUM 1.8 mg/dL (1.8-2.4); PHOSPHORUS 3.1 mg/dL (2.5-4.9); POTASSIUM 4.4 mmol/L (3.5-5.1)
[2019-10-29 05:29] LABS: BE(vivo) 5.2 mmol/L (-2 to +3); HCO3 30.8 mmol/L (22.0-26.0); PCO2 49.4 mmHg (35.0-45.0); PO2 72.8 mmHg (80.0-100.0); pH 7.413 (7.360-7.450); sO2 94.7 % (92.0-98.0)
--- NOTE | 2019-10-29 06:00 | NUR ---
REMains INTUBATED AND SEDATED WITH VERSED 6 MG AND PROPOFOL GTT AT 30 MCG NORESPONSIVE. LUNGS DIMINISHED. UO 350 CC AND OGT 500 CC BILE DRG THIS SHIFT REMAINS ON HYPOTHERIA PROTOCAL. WILL START TO REWARM AT 1131 THIS AM. CURRENTLY TEMP 32.4 COR INSULIN GTT AT 1 UNIT/HR WILL CONT TO MONITTOR
[2019-10-29 06:33] LABS: HEMOGLOBIN 12.1 gm/dL (14.0-18.0); MCHC 32.7 g/dL (28.0-37.0); MCV 91.6 fL (80.0-100.0); RBC 4.04 mil/uL (4.50-6.00); RDW 14.2 % (10.5-14.5); WBC 11.6 thou/uL (4.0-11.0)
[2019-10-29 06:40] LABS: CALCIUM 8.5 mg/dL (8.5-10.1); CREATININE 1.5 mg/dL (0.7-1.3); POTASSIUM 4.3 mmol/L (3.5-5.1)
--- NOTE | 2019-10-29 09:47 | NUR ---
SPOKE WITH AT SUHA 0820. UPDATED TO THE POC START REWARMING AT 1131 TODAY. ALSO INFORMED HER THAT THE KIDNEY DOCTOR, WOULD SPEAK TO HER AFTER WE STARTED THE REWARMING PROCESS. DR CROWDER IN AT SUHA 0900 AND ASKED TO CALL ON HER CELL PHONE SHE WAS HEADED INTO WORK.
--- NOTE | 2019-10-29 11:43 | NUR ---
discussed during los, no anticipated dc over weekend. pt cont on vent. not stable for dc.
--- NOTE | 2019-10-29 12:50 | NUR ---
REWARMING PROCESS STARTED AT 1131, LAB DRAWN PER PROTOCOL. WILL CONTINUE TO MONITOR. MONITOR SHOWING NSR WITH 1ST DEGREE AV BLOCK.
[2019-10-29 12:51] LABS: ABSOLUTE NEUTROPHILS 12.7 thou/uL (1.4-8.2); BASOPHILS 0.3 % (0.0-2.0); HEMATOCRIT 37.3 % (42.0-52.0); HEMOGLOBIN 12.2 gm/dL (14.0-18.0); LYMPHOCYTES 8.2 % (24.0-44.0); MCHC 32.7 g/dL (28.0-37.0); MCV 91.7 fL (80.0-100.0); MONOCYTES 3.4 % (1.0-8.0); PLATELET COUNT 187 thou/uL (150-400); POLYS 88.1 % (36.0-66.0); RBC 4.07 mil/uL (4.50-6.00); RDW 13.9 % (10.5-14.5); WBC 14.4 thou/uL (4.0-11.0)
[2019-10-29 13:03] LABS: APTT 29.2 Seconds (24.5-32.8); PROTIME 10.5 Seconds (9.3-11.4)
[2019-10-29 13:05] LABS: ANION GAP 7 mmol/L (7-16); BUN 43 mg/dL (7-18); CALCIUM 8.6 mg/dL (8.5-10.1); CHLORIDE 100 mmol/L (98-107); CO2 32 mmol/L (21-32); CREATININE 1.5 mg/dL (0.7-1.3); GLUCOSE 114 mg/dL (74-106); MAGNESIUM 1.9 mg/dL (1.8-2.4); PHOSPHORUS 4.5 mg/dL (2.5-4.9); POTASSIUM 4.4 mmol/L (3.5-5.1); SODIUM 139 mmol/L (136-145); TROPONIN-I <0.06 ng/mL (<0.06)
--- NOTE | 2019-10-29 13:45 | NUR ---
DR DEGROOT CALL AND UPDATED TO PATIENT'S RENAL STATUS. VANCOMYCIN TROUGH LEVEL OF 31, MEDICATION HELD. AND URINE OUTPUT FOR THE DAY OF 230 ML. ORDERS RECEIVED. WILL CONTINUE TO MONITOR
--- NOTE | 2019-10-29 15:23 | NUR ---
SPOKE WITH AND UPDATED HER TO TAPPERING SEDATION AND PATIENT'S INABILITY TO COUGH OR GAG WHEN SUCTIONED, OR BLINK WHEN EYES TOUCHED. WILL CONTINUE TO MONITOR.
--- NOTE | 2019-10-29 15:30 | NUR ---
COLLIN REQUEST THAT WE NOT GIVE INFORMATION TO DAUGHTER APOORVA AND [facility]S [facility] OB[facility]OUGH [facility].
--- NOTE | 2019-10-29 18:55 | NUR ---
PATIENT'S , COLLIN, CALLED AND UPDATED TO PATIENT STATUS. QUESTIONS ADDRESSED AND REASSURANCE GIVEN. PATIENT NOT ASSISTING VENT WITH RATE DECREASED TO 14, PROPOFOL AT 13 MCG AND VERSED AT 4 MG. NO COUGH, GAG OR CORNEAL REFLEXES NOTED, SL MOVEMENT OF LIPS AND SL WITHDRAWAL TO PAIN WITH RT FOOT ONLY. MONITOR NSR WITH RARE PVC ADN 1ST DEGREE AV BLOCK NOTED. NGT DRAINING BROWNISH DRAINAGE, FLUSHED Q4H FOR PATENCY. URINE OUTPUT AVERAGE GREATER THAN 30 ML/HR. MAP GREATER THAN 65 MMHG THROUGHOUT THE SHIFT. REPORT GIVEN TO SAM JOY. ISOLATION MAINTAINED AND WILL CONTINUE TO MONITOR.
--- NOTE | 2019-10-29 19:10 | NUR ---
HOLD OF SEDATION FOR NOW FOR SEDATION VACATION.
--- NOTE | 2019-10-29 21:30 | NUR ---
PT FACIAL SWITCHING SLIGHLY INCREASED. QUESTIONING FOR MYOCLONIC SEIZURE. WILL RESUME PROPOFOL GTT FOR NOW.
[2019-10-30] VITALS (41 sets, daily range): BP systolic 119–172; BP diastolic 58–84
[2019-10-30 05:22] LABS: HEMATOCRIT 33.6 % (42.0-52.0); HEMOGLOBIN 10.8 gm/dL (14.0-18.0); MCH 29.8 pg (26.0-34.0); MCHC 32.2 g/dL (28.0-37.0); MCV 92.7 fL (80.0-100.0); RBC 3.63 mil/uL (4.50-6.00); RDW 14.2 % (10.5-14.5); WBC 17.1 thou/uL (4.0-11.0)
[2019-10-30 05:25] LABS: CALCIUM 7.8 mg/dL (8.5-10.1); CREATININE 1.5 mg/dL (0.7-1.3); PHOSPHORUS 4.8 mg/dL (2.5-4.9); POTASSIUM 4.3 mmol/L (3.5-5.1)
--- NOTE | 2019-10-30 07:00 | NUR ---
No event in this shift. He is continue to be sedated with propofol. No more facial twitching indicates. Report is hand off to am shift RN.
--- NOTE | 2019-10-30 10:30 | NUR ---
CALLED IN AND SPOKE WITH HER CONCERNING POC AND PATIENT'S PROGRESS TOWARDS OUTCOME GOALS. PATIENT DOES NOT FOLLOW ANY COMMANDS BUT REMAINS ON PROPOFOL AT 40 MCG, DR JIANG IN AND UPDATED TO ELEVATED BP AND USE OF HOME MEDS, NARCOTIC USAGE. ORDERS NOTED. WILL CONTINUE TO MONITOR
--- NOTE | 2019-10-30 14:10 | NUR ---
RESULTS OF COVID 19 RESULTS NOTED, DR JIANG NOTIFIED AND ISOLATION DC'D. PATIENT'S ALSO NOTIFIED OF NEGATIVE RESULTS.
--- NOTE | 2019-10-30 16:30 | NUR ---
EEG IN PROGRESS AT BEDSIDE, DR DA SILVA AT BEDSIDE. EEG SHOWING STATUS ELIPITUS ATIVAN GIVEN PER ORDER AND DEPACON DRIP INFUSING. PROPOFOL OFF AT 1500 FOR EEG. JERKING MOVEMENT OF LOWER EXTERMITIES NOTED. DR SOLER AWARE. WILL CONTINUE TO MONITOR.
--- NOTE | 2019-10-30 16:45 | NUR ---
ASKED DR DA SILVA TO CALL THE TO UPDATE HER ABOUT HER 'S CONDITION.
--- NOTE | 2019-10-30 18:10 | NUR ---
TO CT PER BED WITH MONITOR AND RT FOR CT OF HEAD, AND BACK. ARTIC SUN REMOVED FROM PATIENT, SKIN INTACT. PATIENT REPOSITIONED. WILL CONTINUE TO MONITOR.
--- NOTE | 2019-10-30 20:18 | NUR ---
CALLED PATIENT'S COLLIN TO UPDATE HER, SHE IS STILL AWAITING A CALL FROM DR DA SILVA. UPDATED HER TO THE POC AND SHE VERBALIZED UNDERSTANDING. PATIENT CONTINUES TO HAVE JERKING MOVEMENTS, PROPOFOL INFUSING AT 30 MCG/KG/MIN. DR DA SILVA CALL WITH POC, ORDERS NOTED. MONITOR SHOWING NSR. BP STABLE, HYDRALAZINE GIVEN AT SUHA 1100 WITH DECREASE IN BP. ONLY ABLE TO DOPPLE PEDAL PULSES. VENT SETTING UNCHANGED, OVER BREATHING THE VENT. NGT AND GARZA PATENT. REPORT GIVEN TO NEXT SHIFT.
[2019-10-31] VITALS (37 sets, daily range): BP systolic 110–164; BP diastolic 55–89
[2019-10-31 04:42] LABS: CALCIUM 7.8 mg/dL (8.5-10.1); CREATININE 1.4 mg/dL (0.7-1.3); POTASSIUM 4.1 mmol/L (3.5-5.1)
[2019-10-31 04:44] LABS: HEMATOCRIT 31.4 % (42.0-52.0); HEMOGLOBIN 10.1 gm/dL (14.0-18.0); MCHC 32.3 g/dL (28.0-37.0); MCV 92.7 fL (80.0-100.0); RBC 3.38 mil/uL (4.50-6.00); RDW 14.8 % (10.5-14.5); WBC 16.1 thou/uL (4.0-11.0)
--- NOTE | 2019-10-31 08:17 | NUR ---
PATIENT ON LIGHT SEDATION. RESPONDS TO PAINFUL STIMULI, HAS GAG REFLEX, SUCTIONING THIN BLOODY SECRETIONS. OG TUBE TO LOW INTERMITENT SUCTION. GARZA PATENT AND DRAINING ADEQUATE OUTPUT. INSULING GTT DECREASED TO 1U/HR, BLOOD SUGAR CLOSELY MONITORED. VENTILATOR SETTING CHANGED, FIO2 40%. O2 SAT REMAINED ABOVE 90%. SPOKE WITH PATIENT'S AND UPDATED HER, NO SIGN OF ACUTE DISTRESS NOTED AT THIS TIME. WILL CONTINUE TO MONITOR.
--- NOTE | 2019-10-31 20:08 | NUR ---
ct scan today. no change. pt not progressing towards goals. tf started. tolorating well. diprivan for seizure control.
[2019-11-01] VITALS (25 sets, daily range): BP systolic 128–172; BP diastolic 60–79
--- NOTE | 2019-11-01 03:33 | NUR ---
PATIENT ON LIGHT SEDATION, RESPONDS TO PAINFUL STIMULI. VENTILATOR FIO2 40%, PATIENT REMAINED ABOVE 90%, DECREASED TREMORS NOTED THROUGHOUT THE NIGHT, TUBE FEEDING INCREASED TO 20ML/HR, MINIMAL RESIDUAL. GARZA PATENT, GREATER THAN 30ML/HR OUTPUT. PATIENT SLOWLY PROGRESSING TOWARDS GOALS, NO SIGN OF ACUTE DISTRESS NOTED AT THIS TIME. WILL CONTINUE TO MONITOR.
[2019-11-01 03:47] LABS: CREATININE 1.3 mg/dL (0.7-1.3); POTASSIUM 4.3 mmol/L (3.5-5.1)
--- NOTE | 2019-11-01 07:23 | HC ---
[facility] [place] [address] CONSULTATION Name: LILLIAM HINKLE Room #: 244-P ADM IN M.R.#: [id number] Admission: 10/28/19 Attend Phys: Jim Sandoval MD Discharge: Date of : 54 Report #: [id number] THIS REPORT FOR: cc: JOSE Romo family physician/PCP JOSE Romo family physician/PCP Bijan Leon MD ~ CC: Jim GARCIA physician/PCP DATE OF SERVICE: 10/29/2019 REASON FOR THE CONSULTATION: Hyperkalemia. REASON FOR THE PRESENTATION: Post-cardiac arrest. HISTORY OF PRESENT ILLNESS: A 69-year-old with extensive past medical history including coronary artery disease, status post multiple stents; heavy smoker; COPD, maintained on oxygen. He is also known to have diabetes mellitus, hypertension. He presented post-cardiac arrest. The patient is currently intubated. He is not able to provide me with a history. He was found by his spouse. Approximate downtime was 30 minutes before the arrival of the EMS. CPR was initiated for another 19 minutes. The patient was brought to the Emergency Room for further evaluations and management. On presentation, the patient was found to be hyperkalemic, but this was post-code. He was found to have a creatinine of 1.5 that has gone up to 1.6; however, the patient's creatinine is trending down to 1.5. We do not have any recent labs on him in this year; however, back in 2018, his creatinine was 0.7. PAST MEDICAL HISTORY: Numerous and includes the followin. Coronary artery disease. 2. COPD, oxygen dependent. 3. Hypertension. 4. Diabetes mellitus. 5. Chronic narcotic abuse. 6. Aortic stenosis. 7. Severe pulmonary hypertension. MEDICATIONS: Obtained from the medical chart, atorvastatin, carvedilol, gabapentin, trazodone, glipizide, and morphine. ALLERGIES: No known drug allergies listed. FAMILY HISTORY: Unobtainable given the patient's current mental status. SOCIAL HISTORY: Unobtainable given the patient's current mental status and intubation status. [facility] [address] [place] [address] CONSULTATION Name: LILLIAM HINKLE Nicolas Room #: 244-P [facility] IN [facility].#: [id number] Admission: 10/28/19 Attend Phys: Jim Sandoval MD Discharge: Date of : 54 Report #: [id number] REVIEW OF SYSTEMS: Unobtainable given the patient's current mental status and intubation status. PHYSICAL EXAMINATION: GENERAL: He is intubated, going through hypothermia protocol. VITAL SIGNS: Temperature is 32.8, blood pressure is 122/56. HEAD AND NECK: ET tube in place. CHEST: No crackles. CARDIOVASCULAR: No rub. ABDOMEN: Soft. EXTREMITIES: Lower extremities, +1 edema. LABORATORY VALUES: Reviewed. Sodium is 139, potassium 4.3, chloride 101, BUN is 44, creatinine is 1.5. AST was elevated at 129, ALT was elevated at 76. ASSESSMENT, IMPRESSION, PLAN: 1. Acute kidney injury. 2. Hyperkalemia. 3. Post-cardiac arrest. 4. Respiratory failure. 5. Coronary artery disease. 6. Hypertension. 7. Post-hypothermia protocol. 8. Very grim prognosis. From the renal perspective, the patient's creatinine seems to be improving with the fluid resuscitation and resumption of his circulation. Continue with the normal saline for now. Urine output seems to be marginal. Chest x-ray from today was reviewed with no evidence of florid pulmonary edema. I will continue with the same IV fluid. He might need diuresis down the road. 9. Avoid nephrotoxins. 10. His hyperkalemia was status post code and was probably related to his code. This has resolved. 11. Continue pulmonary and cardiac support. 12. The patient is going to go through the rewarming process and we will wait for complete neurological evaluation. <ELECTRONICALLY SIGNED> By: Bijan Leon MD 11/01/19 0723 [id number] Bijan Leon MD /nt
--- NOTE | 2019-11-01 08:31 | NUR ---
Pt HAS BEEN ON HOLD FOR PT SERVICES FOR SEVERAL DAYS. Pt IS STILL ON VENTILATOR. D/T EXTENDED NUMBER OF DAYS ON HOLD, WILL NEED UPDATED PT ORDER WHEN Pt IS MEDICALLY APPROPRIATE TO PARTICIPATE WITH PT INTERVENTIONS.
--- NOTE | 2019-11-01 10:15 | NUR ---
Nutrition: REC change tube feeding formula to Vital HP to reach goal rate of 65 mL/hr with current propofol demands.
--- NOTE | 2019-11-01 12:57 | NUR ---
PATIENT WAS REFERRED FOR O.T. 4 DAYS AGO. Pt REMAINS ON THE VENTILATOR AND IS NOT RESPONSIVE. PATIENT, THEREFORE, IS ON HOLD FOR O.T. UNTIL NEW ORDERS ARE RECEIVED FROM A PHYSICIAN WHEN/IF APPROPRIATE.
--- NOTE | 2019-11-01 13:03 | NUR ---
discussed during los, slow improvement, consult neuro. remains on vent. will cont following as needed for dc needs.
--- NOTE | 2019-11-01 17:10 | NUR ---
EEG COMPLETED, CALL IN AND REQUESTED TO SPEAK WITH PATIENT AND ASKED THIS NURSE TO STAY IN THE ROOM TO SEE IF HE WOULD SQUEEZE MY HAND, PHONE FROM ROOM AND HE DID NOT SQUEEZE MY HAND, AWARE. STATES THAT SHE HAD AN UPDATE FROM THE NEUROLOGY DOCTOR AND WISHES TO MAKE HIM A DNR. PATIENT PLACED BACK ON PROPOFOL. TOLERATING TUBE FEEDING. URINE OUTPUT GREATER THAN 50 ML/HR MONITOR NSR. BP STABLE.
--- NOTE | 2019-11-01 19:00 | NUR ---
PATIENT STATUS UNCHANGED. NOT PROGRESSING TOWARDS OUTCOME GOAL. DR CROWDER CALLED BACK AND UPDATED ON THE 'S REQUEST FOR DNR. ORDERS NOTED.
[2019-11-02] VITALS (33 sets, daily range): BP systolic 108–160; BP diastolic 55–73
[2019-11-02 04:35] LABS: ALBUMIN 2.5 g/dL (3.4-5.0); CALCIUM 8.2 mg/dL (8.5-10.1); TOTAL BILIRUBIN 0.6 mg/dL (<0.1-1.0); TOTAL PROTEIN 4.7 g/dL (6.4-8.2)
[2019-11-02 04:55] LABS: ABSOLUTE NEUTROPHILS 6.7 thou/uL (1.4-8.2); BASOPHILS 0.1 % (0.0-2.0); EOSINOPHILS 0.2 % (0.0-3.0); HEMATOCRIT 25.4 % (42.0-52.0); HEMOGLOBIN 8.4 gm/dL (14.0-18.0); LYMPHOCYTES 10.9 % (24.0-44.0); MCH 30.8 pg (26.0-34.0); MCHC 33.1 g/dL (28.0-37.0); MCV 93.2 fL (80.0-100.0); MONOCYTES 8.7 % (1.0-8.0); PLATELET COUNT 147 thou/uL (150-400); POLYS 80.1 % (36.0-66.0); RBC 2.73 mil/uL (4.50-6.00); RDW 14.1 % (10.5-14.5); WBC 8.4 thou/uL (4.0-11.0)
[2019-11-02 05:18] LABS: BE(vivo) 3.9 mmol/L (-2 to +3); PCO2 53.8 mmHg (35.0-45.0); PO2 65.1 mmHg (80.0-100.0); pH 7.364 (7.360-7.450); sO2 91.7 % (92.0-98.0)
--- NOTE | 2019-11-02 06:21 | NUR ---
PATIENT NEUROLOGICAL STATUS REMAINS UNCHANGED FROM PREVIOUS SHIFT. PATIENT TOLERATING TUBE FEEDING AT GOAL RATE. SPOKE WITH ABOUT PLAN OF CARE AND UPDATED ON PATIENT'S NIGHT. WOULD LIKE TO BE CALLED WITH ANY CHANGES THROUGHOUT THE DAY. PATIENT ISN'T PROGRESSING TOWARDS GOALS. NO SIGN OF ACUTE DISTRESS NOTED AT THIS TIME. WILL CONTINUE TO MONITOR.
--- NOTE | 2019-11-02 19:30 | NUR ---
ASSUMED CARE PT SHIFT CHANGE. ASSESSMENTS CHARTED. MEDS GIVEN PER OCT. PT UNRESPONSIVE, ON VENTILATOR. VENT SETTINGS UNCHANGED THIS SHIFT. SUCTIONED PRN. ORAL CARE COMPLETED Q2 AND PRN. PROPAFOL GTT CONTINUES. SEDATION VACATION ATTEMPTED THIS SHIFT, PT DID NOT FOLLOW COMMANDS OR RESPOND TO ANY STIMULI. TUBE FEEDS CONTINUE AT 50/HR. PLAN IS FOR ANOTHER EEG LATER THIS WEEK PER DR WHITE. FAMILY UPDATED THIS SHIFT. PT DID NOT EXHIBIT ANY SEIZURE-LIKE ACTIVITY THIS SHIFT. PT HAD LOW GRADE TEMP AT 37.6, TYLENOL GIVEN, TEMP DOWN TO 37.5. PT IN NO APPARENT PAIN, IN NO APPARENT DISTRESS. PT CURRENTLY RESTING IN BED COMFORTABLY. REPORT GIVEN TO [facility] NURSE.
[2019-11-03] VITALS (39 sets, daily range): BP systolic 128–181; BP diastolic 60–83
[2019-11-03 04:58] LABS: BE(vivo) 2.5 mmol/L (-2 to +3); HCO3 29.6 mmol/L (22.0-26.0); PO2 63.1 mmHg (80.0-100.0); sO2 89.8 % (92.0-98.0)
[2019-11-03 04:59] LABS: pH 7.319 (7.360-7.450)
[2019-11-03 05:50] LABS: HEMATOCRIT 29.5 % (42.0-52.0); HEMOGLOBIN 9.5 gm/dL (14.0-18.0); MCH 30.2 pg (26.0-34.0); MCHC 32.4 g/dL (28.0-37.0); MCV 93.4 fL (80.0-100.0); PLATELET COUNT 173 thou/uL (150-400); RBC 3.15 mil/uL (4.50-6.00); RDW 14.4 % (10.5-14.5); WBC 13.7 thou/uL (4.0-11.0)
[2019-11-03 05:57] LABS: ALBUMIN 2.9 g/dL (3.4-5.0); CALCIUM 8.9 mg/dL (8.5-10.1); POTASSIUM 4.5 mmol/L (3.5-5.1); TOTAL BILIRUBIN 0.4 mg/dL (<0.1-1.0); TOTAL PROTEIN 5.6 g/dL (6.4-8.2)
[2019-11-03 09:59] LABS: ABSOLUTE NEUTROPHILS 11.9 thou/uL (1.4-8.2); PLATELET ESTIMATE NORMAL
--- NOTE | 2019-11-03 11:51 | NUR ---
ON-GOING ASSESSMENT: CM SPOKE WITH ATTENDING AND PTS PROGNOSIS STILL REMAINS POOR. PLANS FOR POSSIBLE REPEAT EEG IN A FEW DAYS TO MONITOR PTS PROGRESS. CM WILL CONTINUE TO FOLLOW TO ASSIST NEEDED.
--- NOTE | 2019-11-03 17:34 | NUR ---
PATIENT'S UPDATED OVER THE PHONE THIS AFTERNOON. PATIENT REMAINS HYPERTENSIVE AND DR. CROWDER NOTIFIED, PRN LABETALOL AND HYDRALAZINE ADMINISTERED.
[2019-11-04] VITALS (58 sets, daily range): BP systolic 121–178; BP diastolic 59–103
--- NOTE | 2019-11-04 04:25 | NUR ---
ASSUMED PT CARE AT 1900. ASSESSMENTS AND MEDS GIVEN ARE CHARTED. PT IS STABLE. PT HAD AN UNEVENTFUL NIGHT. PT IS NOT PROGRESSING TOWARDS POC GOALS.
--- NOTE | 2019-11-04 16:28 | NUR ---
PT CARE ASSUMED APPROX 1130. ASSESSMENTS CHARTED. NO APPARENT PAIN NOTED. TUBES AND LINES MAINTAINED AND PATENT. TURNING PT Q2 HRS AND PRN. PT TOLERATING POC. JERKY MOVEMENTS CONTINUED THIS SHIFT. NEURO DR AWARE. EEG TO BE REPEATED. NO ANSWER AND EEG DEPT REGARDING WHEN. ORDERS ARE IN. LOW GRADE TEMP TREATED. BP SLIGHLTY ELEVATED WILL TREAT PER PRN MED PARAMETERS. VS OTHERWISE STABLE. NO DISTRESS NOTED.
--- NOTE | 2019-11-04 16:46 | NUR ---
PT CARE TRANSFERRED TO NEW NURSE. RECEIVING NURSE DENIES QUESTIONS OR CONCERNS REGARDING PT AND HIS POC.
--- NOTE | 2019-11-04 19:41 | NUR ---
ASSUMED CARE AT 1630, ASSESSMENT AND VITAL SIGNS COMPLETED PER ICU PROTOCOL. NO NEW ORDERS RECEIVED AT THIS TIME, REPORT GIVEN TO SOFTWARE SUPPORT ENGINEER RN, WILL CONTINUE WITH PLAN OF CARE.
[2019-11-05] VITALS (28 sets, daily range): BP systolic 110–166; BP diastolic 33–77
--- NOTE | 2019-11-05 04:55 | NUR ---
ASSUMED PT CARE AT 2300. PT IS INTUBATRED. NO SIGN OF DISTRESS NOTED IN PT. PT IS UNRESPONSIVE. NO CHANGE NOTICED IN PATIENT. GARZA IN PLACE. SCHEDULED MEDS ADMINISTERED. CONTINUE TO MONITOR PT.
--- NOTE | 2019-11-05 09:51 | NUR ---
eliazar remain intubated, unresponsive per notes. will cont following as needed for dc needs. no anticipated dc over the weekend.
--- NOTE | 2019-11-05 10:18 | NUR ---
Nutrition: Propofol D/C. Current tube feeds not meeting needs and hyperglycemia present. REC change formula to glucerna 1.2 at 75 mL/hr to better meet needs if care continues.
--- NOTE | 2019-11-05 10:22 | NUR ---
1020- PT HAVING WHAT APPEARS TO BE FOCAL SEIZURES. EYE TWITCHING NOTED, SOMETIMES JAW TWITCHING, SOMETIMES ARM TWITCHING. NOT UNILATERAL. IT IS INTERMITTENT, HOWEVER BOTH SIDES APPEAR TO HAVE THE TWITCHING PERIODICALLY. NURSE TALKED WITH DR. LEA WHO EXPRESSED TO GIVE AN EXTRA DOSE OF KEPPRA AT THIS TIME AND THEN WE WILL SEE WHAT THE EEG RESULTS ARE.
--- NOTE | 2019-11-05 10:51 | NUR ---
10:50- Joseph is here for the EEG testing.
--- NOTE | 2019-11-05 12:26 | NUR ---
6300 DR. LEA HERE. EEG IN PROGRESS. PER NEUROLOGIST, START PROPOFOL NOW FOR SEIZURE MAINTANENCE. NURSE TO CONTINUE TO MONITOR PT STATUS.
--- NOTE | 2019-11-05 12:33 | NUR ---
1032- PER DR. LEA, GO UP ON PROPOFOL TO 20MCG/KG/MIN. THIS WAS DONE. EEG CONTINUES TO BE IN PROGRESS
--- NOTE | 2019-11-05 15:06 | NUR ---
NURSE CALLED PHONE NUMBERS OF PATIENTS WITH DR. LEA. NO ANSWER. WILL AWAIT FAMILY RETURN CALL FOR UPDATE ON PATIENT STATUS AND TO LET THEM KNOW THE PHYSICIAN WANTS TO TALK WITH HIS TO UP DATE HER ON EEG FINDINGS.
[2019-11-06] VITALS (21 sets, daily range): BP systolic 108–150; BP diastolic 51–67
--- NOTE | 2019-11-06 03:41 | NUR ---
ASSUMED PT CARE AT 1900. ASSESSMENTS AND MEDS GIVEN ARE CHARTED. SEDATION VAATION; +VE BABINKSI, WITHDRAWAL OF BLE TO PAIN. PROPOFOL KEPT AT 50 ALL NOC WITH NO CHANGES. PT IS STABLE. NO SEIZURE ACTIVITIES NOTED. WILL CONTINUE TO CLOSELY MONITOR.
--- NOTE | 2019-11-06 18:43 | NUR ---
PLAN TO WITHDRAW CARE TOMORROW AT 10AM. AND PATIENT'S SISTER WILL BE HERE. DR. CROWDER NOTIFIED. MTN NOTIFIED AND WILL CALL TOMORROW TO CHECK GAG/CORNEAL. VERY WEAK GAG AND POSITIVE CORNEAL REFLEX.
[2019-11-07] VITALS (14 sets, daily range): BP systolic 35–139; BP diastolic 15–93
--- NOTE | 2019-11-07 10:52 | NUR ---
Pt's and pt's sister here requesting to have pt withdrawn from care. Page placed to Dr Sandoval who is in the hospital and will come and speak with family. Page to pastoral care per family request and flame cutter has just arrived. Pt remains sedated on the ventilator. Vital signs are currently stable.
--- NOTE | 2019-11-07 11:17 | NUR ---
Call placed to [place] to update on pt family wishes to withdraw care. Call was received earlier this morning from [place] and update on pt status was given at that time. Spoke with warehouse representative now and instruction received to proceed with withdrawel of care and call back at time of cardiac .
--- NOTE | 2019-11-07 12:08 | NUR ---
Pt given one mg of Morphine IV prior to extubation by RT. Extubated to 2 liter nasal cannula by RT at 1207. Pupils equal and reactive prior to removal. Pt remains on Propofol at 50 mcg/kg/min. Family stepped out of room while extubated and will be notified to come back when ready.
--- NOTE | 2019-11-07 13:40 | NUR ---
Dr Sandoval was notified that pt . Oxygen saturation slowly deteriorated. Pt received total of 2 mg of Morphine IV for air hunger. Pt pronounced by Mariya Gilmore RN and Oscar JOY at 1340. Pt has no spontaneous respiration. Asystole in two leads. No heart tones for 60 second auscultation.
--- NOTE | 2019-11-07 14:30 | NUR ---
Declined for organ or tissue by MTN.
--- NOTE | 2019-11-07 14:45 | NUR ---
and pt's sister provided with bereavement basket. Escorted to car by refrigeration unit repairer.
--- NOTE | 2019-11-07 18:10 | NUR ---
Tranported to [facility] by security. See report.
--- NOTE | 2019-11-10 12:54 | EEG ---
[facility] [place] [address] ELECTROENCEPHALOGRAM Name: LILLIAM HINKLE Room #: 250-P DIS IN M.R.#: [id number] Admission: 10/28/19 Attend Phys: Jim Sandoval MD Discharge: 11/07/19 Date of : 54 Report #: [id number] THIS REPORT FOR: //name// CC: Jim Sandoval [facility] physician/PCP DATE OF SERVICE: 11/01/2019 This patient's EEG was done for comparison and I reviewed this EEG and compared with the last EEG. This EEG demonstrates severe epileptiform activity throughout the record. It is in a pattern with burst supression with a very small interburst interval. Virtually, the whole EEG is full of epileptiform activity. IMPRESSION: This is a severely abnormal electroencephalogram, demonstrating epileptiform activity most of the time in a burst suppression pattern with a very small interburst interval. There has been no significant improvement in this patient's EEG, which is severely abnormal. <ELECTRONICALLY SIGNED> By: Herb Lopez MD 11/10/19 1254 1712 1727 Herb Lopez MD /nt
--- NOTE | 2019-11-12 12:01 | EKG ---
[facility] [place] [address] [place] [address] ELECTROCARDIOGRAM REPORT Name: LILLIAM HINKLE Room #: 250-P [facility] IN M.R.#: [id number] Admission: 10/28/19 Attend Phys: Jim Sandoval MD Discharge: 11/07/19 Date of : 54 Report #: [id number] THIS REPORT FOR: cc: JOSE - No family physician/PCP FAM - No family physician/PCP Dylan Brandt MD [facility] THIS REPORT FOR: //name// [facility] ED Test Date: 2019-10-27 Test Time: 22:18:33 Pat Name: LILLIAM HINKLE Department: Room: [facility] 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1950 Requested By: Darrin Michelle Order Number: [id number] MD: Dylan Brandt Measurements Intervals [place] Rate: 82 P: 81 [place]: 171 QRS: -76 QRSD: 145 T: 70 QT: 416 QTc: 486 Interpretive Statements Sinus rhythm RBBB and LAFB Compared to ECG 05/05/2018 08:33:05 Right bundle-branch block now present Ventricular premature complex(es) no longer present Electronically Signed On 10-28-2019 9:09:29 CDT by Dylan Brandt [email or web address] <ELECTRONICALLY SIGNED> By: Dylan Brandt MD, FACC 10/28/19 0909 2218 2218 Dylan Brandt MD, [facility] /EPI
--- NOTE | 2019-11-12 12:01 | EKG ---
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
== END 2019-11-07 13:40 | DRG 207 ==
LOC: ER 22:11 → ICU 10-28 01:15 → EROBS 10-28 01:15 → ICU 10-28 01:45
PROVIDERS: Emergency Medicine; Hospitalist; Internal Medicine Pulmonary Disease; Nurse Practitioner Family; Pediatrics; ADMIT Hospitalist
PROC: 0BH17EZ Insertion of Endotracheal Airway into Trachea, Via Natural or Artificial Opening (ICD-10-PCS; principal; 2019-10-28)
PROC: 5A1955Z Respiratory Ventilation, Greater than 96 Consecutive Hours (ICD-10-PCS; principal; 2019-10-28)
PROC: 02HV33Z Insertion of Infusion Device into Superior Vena Cava, Percutaneous Approach (ICD-10-PCS; 2019-10-28)
PROC: 4A00X4Z Measurement of Central Nervous Electrical Activity, External Approach (ICD-10-PCS; 2019-10-28)
DX: J96.22 Acute and chronic respiratory failure with hypercapnia (principal); N17.0 Acute kidney failure with tubular necrosis; G92 Toxic encephalopathy; G93.1 Anoxic brain damage, not elsewhere classified; S22.49XA Multiple fractures of ribs, unspecified side, initial encounter for closed fracture; C80.0 Disseminated malignant neoplasm, unspecified; K56.7 Ileus, unspecified; D62 Acute posthemorrhagic anemia; E87.2 Acidosis; I46.9 Cardiac arrest, cause unspecified; J96.21 Acute and chronic respiratory failure with hypoxia; X58.XXXA Exposure to other specified factors, initial encounter; I10 Essential (primary) hypertension; Z95.820 Peripheral vascular angioplasty status with implants and grafts; J44.9 Chronic obstructive pulmonary disease, unspecified; E11.51 Type 2 diabetes mellitus with diabetic peripheral angiopathy without gangrene; I25.10 Atherosclerotic heart disease of native coronary artery without angina pectoris; G89.29 Other chronic pain; M54.9 Dorsalgia, unspecified; M48.061 Spinal stenosis, lumbar region without neurogenic claudication; I27.20 Pulmonary hypertension, unspecified; I35.0 Nonrheumatic aortic (valve) stenosis; G40.901 Epilepsy, unspecified, not intractable, with status epilepticus; Z66 Do not resuscitate; E78.5 Hyperlipidemia, unspecified; E87.5 Hyperkalemia; Z99.81 Dependence on supplemental oxygen; Z95.5 Presence of coronary angioplasty implant and graft; I25.2 Old myocardial infarction; Z79.891 Long term (current) use of opiate analgesic; Y93.89 Activity, other specified; Y92.89 Other specified places as the place of occurrence of the external cause; Y99.8 Other external cause status; Z20.828 Contact with and (suspected) exposure to other viral communicable diseases
CPT/HCPCS: 10078